=== PATIENT | male | born 1995 | race Caucasian/White ===

== ENCOUNTER 2022-03-01 10:08 | Emergency (ER) | payer MEDICAID ==
[~2022-03-01] VITALS: Ht 175.3 cm; Wt 95.3 kg
[2022-03-01 10:19] VITALS: BP_SYST 124
[2022-03-01 11:00] LABS: BASOPHILS # (AUTO) 0.1 K/uL (0.0-0.2); BASOPHILS % (AUTO) 0.7 % (0.0-2.0); EOSINOPHILS # (AUTO) 0.6 K/uL (0.0-0.4); EOSINOPHILS % (AUTO) 7.4 % (0.0-4.0); HEMOGLOBIN 14.7 g/dL (14.0-18.0); LYMPHOCYTES # (AUTO) 3.2 K/uL (1.0-5.5); LYMPHOCYTES % (AUTO) 39.9 % (20.5-51.5); MEAN CORPUSCULAR HEMOGLOBIN 31 pg (27-31); MEAN CORPUSCULAR HGB CONC 34 % (32-36); MEAN CORPUSCULAR VOLUME 90 fL (79.0-98.0); MONOCYTES # (AUTO) 0.4 K/uL (0.0-1.0); NEUTROPHILS # (AUTO) 3.8 K/uL (1.8-7.7); PLATELET COUNT (AUTO) 318 K/uL (130-430); WHITE BLOOD COUNT (AUTO) 8.1 K/uL (4.8-10.8)
[2022-03-01 11:12] LABS: ANION GAP 5 (5-15); CALCIUM 9.2 mg/dL (8.4-11.0); CHLORIDE 105 mmol/L (98-107); CREATININE 0.91 mg/dL (0.55-1.30); GLUCOSE 90 mg/dL (70-99); POTASSIUM 4.2 mmol/L (3.5-5.1); UREA NITROGEN, BLOOD 12 mg/dL (8-21)
[2022-03-01 11:21] LABS: ALANINE AMINOTRANSFERASE 26 U/L (12-78); ALBUMIN 4.2 g/dL (3.4-4.8); ASPARTATE AMINOTRANSFERASE 18 U/L (10-37); GFR AFRICAN AMERICAN 129 mL/min (>90); TOTAL BILIRUBIN 0.3 mg/dL (0.0-1.0)
[2022-03-01 11:22] LABS: C-REACTIVE PROTEIN QUANT < 0.2 mg/dL (0-0.5)
[2022-03-01] MEDS ORDERED: ALBMDI INH (12:25)
[2022-03-01 12:35] VITALS: BP_SYST 128
== END 2022-03-01 12:27 | disposition home or self-care (01) ==
LOC: SED 10:08
DX: J98.01 Acute bronchospasm (principal); R55 Syncope and collapse; R50.9 Fever, unspecified; R05.9 Cough, unspecified; Z79.899 Other long term (current) drug therapy; Z20.822 Contact with and (suspected) exposure to COVID-19
CPT/HCPCS: 36415; 71045; 80053; 82550; 83605; 84484; 85025; 86140; 93005; 99285

== ENCOUNTER 2023-02-07 10:30 | Emergency (ER) | payer MEDICAID ==
[~2023-02-07] VITALS: Ht 175.3 cm; Wt 95.3 kg
[2023-02-07 10:30] VITALS: BP_SYST 108; PULSE 60; RESP 17; TEMP 97.3; O2SAT 98
[~2023-02-07 10:30] MED LIST: ALBMDI INH; IBUP-1971 PO
[2023-02-07] MEDS ORDERED: HYDC1% TP (10:52)
[2023-02-07] MEDS ORDERED: CLOT24CR2 TP (10:52)
[2023-02-07 11:00] VITALS: BP_SYST 108; PULSE 60; RESP 17; TEMP 97.3; O2SAT 98
== END 2023-02-07 10:59 | disposition home or self-care (01) ==
LOC: SED 10:30
DX: L25.9 Unspecified contact dermatitis, unspecified cause (principal); R21 Rash and other nonspecific skin eruption; Z79.899 Other long term (current) drug therapy
CPT/HCPCS: 99282

== ENCOUNTER 2023-02-15 13:19 | Emergency (ER) | payer MEDICAID ==
[~2023-02-15] VITALS: Ht 175.3 cm; Wt 95.3 kg
[~2023-02-15 13:19] MED LIST changes: +CLOT24CR2 TP; +HYDC1% TP
[2023-02-15 14:13] VITALS: BP_SYST 129; PULSE 79; RESP 16; TEMP 98.8; O2SAT 98
[2023-02-15 16:25] LABS: BASOPHILS # (AUTO) 0.1 K/uL (0.0-0.2); BASOPHILS % (AUTO) 0.7 % (0.0-2.0); EOSINOPHILS # (AUTO) 0.8 K/uL (0.0-0.4); EOSINOPHILS % (AUTO) 8.3 % (0.0-4.0); LYMPHOCYTES # (AUTO) 3.1 K/uL (1.0-5.5); LYMPHOCYTES % (AUTO) 31.9 % (20.5-51.5); MEAN CORPUSCULAR HEMOGLOBIN 30 pg (27-31); MEAN CORPUSCULAR HGB CONC 33 % (32-36); MEAN CORPUSCULAR VOLUME 91 fL (79.0-98.0); MONOCYTES # (AUTO) 0.8 K/uL (0.0-1.0); MONOCYTES % (AUTO) 7.8 % (1.7-9.3); NEUTROPHILS % (AUTO) 51.3 % (40.0-70.0); PLATELET COUNT (AUTO) 335 K/uL (130-430); RED BLOOD CELL COUNT(AUTO) 4.94 MIL/uL (4.2-6.2); RED CELL DISTRIBUTION WIDTH 13.4 % (9.0-15.0); WHITE BLOOD COUNT (AUTO) 9.7 K/uL (4.8-10.8)
[2023-02-15 17:07] LABS: ALBUMIN 3.9 g/dL (3.4-4.8); CALCIUM 9.4 mg/dL (8.4-11.0); CREATININE 0.97 mg/dL (0.55-1.30); POTASSIUM 3.9 mmol/L (3.5-5.1); TOTAL BILIRUBIN 0.5 mg/dL (0.0-1.0); TOTAL PROTEIN, SERUM 7.6 g/dL (6.4-8.3)
[2023-02-15 17:18] LABS: BILIRUBIN,URINE NEGATIVE (NEGATIVE); BLOOD, URINE NEGATIVE (NEGATIVE); CLARITY/URINE CLEAR (CLEAR); COLOR,URINE YELLOW (YELLOW); GLUCOSE,URINE NEGATIVE (NEGATIVE); KETONES,URINE NEGATIVE (NEGATIVE); LEUKOCYTE ESTERASE ,URINE NEGATIVE (NEGATIVE); NITRITE, URINE NEGATIVE (NEGATIVE); PROTEIN URINE NEGATIVE (NEGATIVE)
[2023-02-15 17:25] VITALS: BP_SYST 129; PULSE 79; RESP 16; TEMP 98.8; O2SAT 98
== END 2023-02-15 17:25 | disposition home or self-care (01) ==
LOC: SED 13:19
DX: T67.5XXA Heat exhaustion, unspecified, initial encounter (principal); R53.1 Weakness; R11.2 Nausea with vomiting, unspecified; Z79.899 Other long term (current) drug therapy; X58.XXXA Exposure to other specified factors, initial encounter; Y93.89 Activity, other specified; Y92.89 Other specified places as the place of occurrence of the external cause; Y99.8 Other external cause status
CPT/HCPCS: 36415; 80053; 81001; 81003; 82550; 85025; 99283